=== PATIENT | female | born 2005 | race African-American/Black ===

== ENCOUNTER 2024-04-26 16:18 | Emergency (ER) | payer MEDICAID ==
[~2024-04-26] VITALS: Ht 157.5 cm; Wt 70.0 kg
[2024-04-26 16:29] VITALS: O2SAT 100
[2024-04-26] MEDS ORDERED: ACET-2708 MT (17:15)
[2024-04-26 17:28] VITALS: BP 122/67; PULSE 84; RESP 18; TEMP 36.72516; O2SAT 100
== END 2024-04-26 17:37 | disposition home or self-care (01) ==
LOC: ER 16:18
DX: M25.561 Pain in right knee (principal)
CPT/HCPCS: 99283; 73562; L1830